=== PATIENT | male | born 1960 | race Caucasian/White ===

== ENCOUNTER 2018-12-09 17:40 | Emergency (ER) | payer BC ==
[2018-12-09 18:23] VITALS: BP 132/60
[2018-12-09] MEDS ORDERED: Albuterol 2.5 MG/3 ML NEB.SOL* (0.083%) INH ONE (18:49)
[2018-12-09] MEDS ORDERED: predniSONE TAB* 20 MG PO ONE (18:49)
--- NOTE | 2018-12-09 18:50 | UC ---
UC General HPI - HPI Summary HPI Summary: pt c/o cough with congestion and some SOLER x 4 days. + wheezing and subjective fever. no cp, asthma or copd. noted some L thumb pain but will see pcp for that. declined an evaluation for that here. - History of Current Complaint Chief Complaint: UCRespiratory Stated Complaint: COUGH,BODY ACHES Time Seen by Provider: 12/09/18 18:42 Hx Obtained From: Patient Onset/Duration: Gradual Onset Timing: Constant Pain Intensity: 8 Associated Signs & Symptoms: Positive: Cough, Fever, SOB, Wheezing. Negative: Chest Pain - Allergy/Home Medications Allergies/Adverse Reactions: Allergies Allergy/AdvReac Type Severity Reaction Status Date / Time No Known Allergies Allergy Verified 12/09/18 18:24 PMH/Surg Hx/FS Hx/Imm Hx Previously Healthy: Yes - Surgical History Surgical History: Yes Surgery Procedure, Year, and Place: left hand - Family History Known Family History: Positive: Cardiac Disease, Diabetes - Social History Alcohol Use: Rare Substance Use Type: None Smoking Status (MU): Former Smoker Type: Cigarettes Amount Used/How Often: 1 ppd Length of Time of Smoking/Using Tobacco: 30 yrs Have You Smoked in the Last Year: No When Did the Patient Quit Smoking/Using Tobacco: 1991 Review of Systems All Other Systems Reviewed And Are Negative: Yes Constitutional: Positive: Fever Respiratory: Positive: Shortness Of Breath, Cough Physical Exam Triage Information Reviewed: Yes Appearance: Well-Appearing Vital Signs: Initial Vital Signs Temp 99.4 F 12/09/18 18:15 Pulse 94 12/09/18 18:15 Resp 20 12/09/18 18:15 BP 132/60 12/09/18 18:15 Pulse Ox 98 12/09/18 18:15 Vital Signs Reviewed: Yes Eyes: Positive: Conjunctiva Clear ENT: Positive: Pharynx normal, TMs normal. Negative: Nasal congestion, Nasal drainage Neck: Positive: Supple, Nontender Respiratory: Positive: No respiratory distress, Decreased breath sounds, Other: - cough is congested and bronchospastic Cardiovascular: Positive: RRR, No Murmur Abdomen Description: Positive: Nontender, No Organomegaly, Soft Bowel Sounds: Positive: Present Musculoskeletal: Positive: ROM Intact Neurological: Positive: Alert Psychological: Positive: Age Appropriate Behavior Skin Exam: Normal Diagnostics - Radiology No standard instances Radiology Interpretation Completed By: ED Physician - cxr=nad Re-Evaluation - Re-Evaluation First Eval Re-Evaluation Time: 19:40 Change: Improved - aeration has improved but pt subjectively feels the same. Course/Dx - Differential Dx - Multi-Symptom Differential Diagnoses: Other - non toxic. not hypoxic. will cover for brochospasm and presumptive bacterial infection - Diagnoses Provider Diagnosis: Cough, Bronchospasm Discharge - Sign-Out/Discharge Documenting (check all that apply): Patient Departure All imaging exams completed and their final reports reviewed: No - Discharge Plan Condition: Stable Disposition: HOME Prescriptions: Albuterol HFA INHALER* [Ventolin HFA Inhaler*] 2 puff INH Q6H #1 mdi Azithromycin TAB* [Zithromax TAB (Z-ANGELICA) 250 mg #6 tabs] 2 tab PO .TODAY, THEN 1 DAILY #1 angelica predniSONE [Prednisone 20 MG TAB] 40 mg PO DAILY #4 tablet Patient Education Materials: Acute Cough (ED), Bronchospasm (ED) Referrals: Marianna Saba MD [Primary Care Provider] - 5 Days - Billing Disposition and Condition Condition: STABLE Disposition: Home
--- NOTE | 2018-12-10 07:48 | UC ---
- Progress Note Progress Note: CXR: No acute disease No change from original management Course/Dx - Diagnoses Provider Diagnoses: Cough, Bronchospasm Discharge - Sign-Out/Discharge Documenting (check all that apply): Post-Discharge Follow Up All imaging exams completed and their final reports reviewed: Yes - Discharge Plan Condition: Stable Disposition: HOME Prescriptions: Albuterol HFA INHALER* [Ventolin HFA Inhaler*] 2 puff INH Q6H #1 mdi Azithromycin TAB* [Zithromax TAB (Z-ANGELICA) 250 mg #6 tabs] 2 tab PO .TODAY, THEN 1 DAILY #1 angelica predniSONE [Prednisone 20 MG TAB] 40 mg PO DAILY #4 tablet Patient Education Materials: Bronchospasm (ED), Acute Cough (ED) Forms: *Work Release Referrals: Marianna Saba MD [Primary Care Provider] - 5 Days - Billing Disposition and Condition Condition: STABLE Disposition: Home
== END 2018-12-09 19:51 | disposition home or self-care (01) ==
LOC: UCCORT 17:40
DX: R05 Cough (principal); J98.01 Acute bronchospasm; R50.9 Fever, unspecified; R06.02 Shortness of breath; M79.645 Pain in left finger(s); Z87.891 Personal history of nicotine dependence
CPT/HCPCS: 71046; 99212; G0463; J7512

== ENCOUNTER 2019-01-02 12:52 | Emergency (ER) | payer BC ==
[2019-01-02 13:38] VITALS: BP 128/66
--- NOTE | 2019-01-02 14:47 | UC ---
General HPI - HPI Summary HPI Summary: 2 day hx of swelling around R calf. also notes a red spot on R carpenter area. no hx injury, cp, sob or fever. - History of Current Complaint Chief Complaint: UCLowerExtremity Stated Complaint: RIGHT LEG PAIN/NUMBNESS Time Seen by Provider: 01/02/19 14:19 Hx Obtained From: Patient Onset/Duration: Gradual Onset Timing: Constant Pain Intensity: 3 Associated Signs & Symptoms: Negative: Chest Pain, Fever, SOB - Allergy/Home Medications Allergies/Adverse Reactions: Allergies Allergy/AdvReac Type Severity Reaction Status Date / Time No Known Allergies Allergy Verified 12/09/18 18:24 PMH/Surg Hx/FS Hx/Imm Hx Previously Healthy: Yes - Surgical History Surgical History: Yes Surgery Procedure, Year, and Place: left hand - Family History Known Family History: Positive: Cardiac Disease, Diabetes - Social History Alcohol Use: Rare Substance Use Type: None Smoking Status (MU): Former Smoker Type: Cigarettes Amount Used/How Often: 1 ppd Length of Time of Smoking/Using Tobacco: 30 yrs Have You Smoked in the Last Year: No When Did the Patient Quit Smoking/Using Tobacco: 1991 Review of Systems All Other Systems Reviewed And Are Negative: No Constitutional: Negative: Fever Respiratory: Negative: Shortness Of Breath, Cough Cardiovascular: Negative: Palpitations, Chest Pain Musculoskeletal: Positive: Edema - RLE with central red area. Negative: Arthralgia, Calf Tenderness, Decreased ROM Physical Exam Triage Information Reviewed: Yes Appearance: Well-Appearing Vital Signs: Initial Vital Signs Temp 98.5 F 01/02/19 13:25 Pulse 91 01/02/19 13:25 Resp 20 01/02/19 13:25 BP 128/66 01/02/19 13:25 Pulse Ox 98 01/02/19 13:25 Vital Signs Reviewed: Yes Eyes: Positive: Conjunctiva Clear Neck: Positive: Supple Respiratory: Positive: Lungs clear, Normal breath sounds Cardiovascular: Positive: RRR, No Murmur Abdomen Description: Positive: Nontender Musculoskeletal: Positive: Other: - RLE: varicose veins. R carpenter has a red area over a vein that is tender. Generalzed mild R calf swelling but calf is not tender. medial ankle has some chronic pigment changes and scale to skin. Leg has full s/v/m functions. Neurological: Positive: Alert Psychological: Positive: Age Appropriate Behavior Skin Exam: Normal Diagnostics - Radiology No standard instances Radiology Interpretation Completed By: Radiologist - IMPRESSION: #. No evidence for RIGHT lower extremity deep venous thrombosis. #. Superficial thrombophlebitis at the medial RIGHT calf. Course/Dx - Differential Dx - Multi-Symptom Differential Diagnoses: Other - no dvt on u/s. superficial phlebitis but more meidal to area of erythema thus will cover for possible cellulitis as well. no concern for PE. - Diagnoses Provider Diagnosis: Superficial phlebitis of right leg Discharge - Sign-Out/Discharge Documenting (check all that apply): Patient Departure All imaging exams completed and their final reports reviewed: Yes - Discharge Plan Condition: Stable Disposition: HOME Prescriptions: Cephalexin CAP* [Keflex CAP*] 500 mg PO TID 7 Days #21 cap Naproxen [Naprosyn 500 mg tab] 500 mg PO BID 5 Days #10 tablet Patient Education Materials: Cellulitis (ED), Superficial Thrombophlebitis (ED) Referrals: Marianna Saba MD [Primary Care Provider] - 4 Days Additional Instructions: go to the ER for any worsening. - Billing Disposition and Condition Condition: STABLE Disposition: Home - Attestation Statements Provider Attestation: Per institutional requirements, I have reviewed the chart, however, I was not consulted specifically or made aware of this patient by the midlevel provider. I did not personally evaluate, interact with , or disposition this patient.
== END 2019-01-02 15:39 | disposition home or self-care (01) ==
LOC: UCCORT 12:52
DX: I80.01 Phlebitis and thrombophlebitis of superficial vessels of right lower extremity (principal); Z87.891 Personal history of nicotine dependence
CPT/HCPCS: 99212; G0463